=== PATIENT | male | born 1970 | race Caucasian/White ===

== ENCOUNTER 2017-05-30 15:00 | Emergency (ER) | payer BC ==
[2017-05-30] MEDS ORDERED: methylPREDNISolone 125 MG* 2 ML VIAL IV ONE (15:47)
[2017-05-30] MEDS ORDERED: Famotidine IV* 10 MG/ML 2 ML (20 mg) IV SLOW PU ONE (15:47)
[2017-05-30 17:41] VITALS: BP 113/72
--- NOTE | 2017-05-31 15:35 | ED ---
Juan Carlos Cordon Thomas, scribed for Tien Barahona MD on 05/30/17 at 1548 . Allergic Reaction/Systemic - HPI Summary HPI Summary: The pt is a 47 y/o M presenting to the ED c/o an allergic reaction s/p being stung by yellowjackets today at 14:00. He was stung on his L forearm, L leg, and the R side of his face. He was hiking when he was stung and he immediately self-administered an Epi-Pen. 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 Prior to this self-administration of an Epi-Pen, he had some chest tightness, but he attributed that to anxiety after being stung. His pain level in the ED is rated 3/10. Pt additionally c/o facial pain (attributed to yellowjacket sting) and diffuse erythematous areas. Pt denies any respiratory complaints at this time. PMHx: previously healthy. PSHx: hernia repair, polyp removal. SHx: no smoking, daily alcohol use. FHx: allergic reactions to insect stings. He has had previous allergic reactions to insect stings, but these reactions were decades ago. 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 - family in room Onset/Duration: Sudden Onset, Started hours ago - today at 14:00, Resolved Timing: Constant Pain Intensity: 3 Pain Scale Used: 0-10 Numeric Aggravating Factor(s): Nothing Alleviating Factor(s): OTC Meds - Benadryl, Epinephrine, Nothing Associated Signs And Symptoms: Positive: Other: - POS: facial pain (attributed to sting), diffuse erythematous areas; NEG: any respiratory complaints - Allergies/Home Medications Allergies/Adverse Reactions: Allergies Allergy/AdvReac Type Severity Reaction Status Date / Time No Known Allergies Allergy Verified 09/04/15 21:47 PMH/Surg Hx/FS Hx/Imm Hx Previously Healthy: Yes Cardiovascular History: Denies: Hx Congestive Heart Failure Respiratory History: Denies: Hx Chronic Obstructive Pulmonary Disease (COPD) - Surgical History Surgery Procedure, Year, and Place: HERNIA REPAIR Infectious Disease History: No Infectious Disease History: Denies: Traveled Outside the [place] in Last 30 Days - Family History Known Family History: Positive: Other - POS: allergic reacitons to insect stings - Social History Alcohol Use: Daily Alcohol Amount: 1 beer Substance Use Type: Reports: None Smoking Status (MU): Never Smoked Tobacco Review of Systems Negative: Fever Negative: Other - NEG: any respiratory complaints in the ED Positive: Other - POS: facial pain (attributed to yellowjacket stings) Positive: Other - POS: diffuse erythematous areas to R side of face, L medial upper extremity, and L medial leg All Other Systems Reviewed And Are Negative: Yes Physical Exam Triage Information Reviewed: Yes Vital Signs On Initial Exam: Initial Vitals Temp Pulse Resp BP Pulse Ox 98.2 F 106 20 137/89 94 05/30/17 15:01 05/30/17 15:01 05/30/17 15:01 05/30/17 15:01 05/30/17 15:01 Vital Signs Reviewed: Yes Appearance: Positive: Well-Appearing, No Pain Distress, Well-Nourished Skin: Positive: Warm, Skin Color Reflects Adequate Perfusion, Dry, Other - There are some erythematous areas to the R side of the face, L medial upper extremity, and L medial leg Head/Face: Positive: Normal Head/Face Inspection Eyes: Positive: Normal ENT: Positive: Normal ENT inspection Neck: Positive: Supple, Nontender Respiratory/Lung Sounds: Positive: Clear to Auscultation, Breath Sounds Present Cardiovascular: Positive: RRR Abdomen Description: Positive: Nontender, Soft Bowel Sounds: Positive: Present Musculoskeletal: Positive: Normal Neurological: Positive: Normal Psychiatric: Positive: Normal, Affect/Mood Appropriate - Mariaelena Coma Scale Coma Scale Total: 15 Diagnostics - Vital Signs Vital Signs Temp Pulse Resp BP Pulse Ox 05/30/17 15:38 98.6 F 95 18 111/72 96 05/30/17 15:30 91 111/72 95 05/30/17 15:28 93 93 05/30/17 15:26 108/70 05/30/17 15:01 98.2 F 106 20 137/89 94 - Laboratory Lab Statement: Any lab studies that have been ordered have been reviewed, and results considered in the medical decision making process. Re-Evaluation - Re-Evaluation First Eval Re-Evaluation Time: 17:47 Change: Improved Comment: He is feeling better. He is tired. Allergic Reaction Course/Dx - Course Course Of Treatment: Mr. Ahmadi was stung three times today and started to have a generalized reaction. He [place] so he used his epipen as well as benadryl and was minorly symptomatic by the time he got here. He was given additional meds and observed and did well. I refilled his epipen script. - Diagnoses Provider Diagnoses: Allergic reaction Discharge - Discharge Plan Condition: Stable Disposition: HOME Prescriptions: Epinephrine [Epipen 2-Gume] 0.3 mg IM Q1HR #1 inj Patient Education Materials: Insect Bite or Sting (ED), General Allergic Reaction (ED) [place]: [facility] [place] - 3 Days Additional Instructions: Follow up with your doctor. If you do not have a primary care doctor, use the [facility] [place] to find one. The documentation as recorded by the Juan Carlos hobbs Thomas accurately reflects the service I personally performed and the decisions made by me, Tien Barahona MD.
== END 2017-05-30 18:02 | disposition home or self-care (01) ==
LOC: ED 15:00
DX: T78.40XA Allergy, unspecified, initial encounter (principal); W57.XXXA Bitten or stung by nonvenomous insect and other nonvenomous arthropods, initial encounter
CPT/HCPCS: 96374; 99283; J2930